=== PATIENT | female | born 1965 | race Caucasian/White ===

== ENCOUNTER 2019-01-16 19:29 | Emergency (ER) | payer OTHER ==
[~2019-01-16] VITALS: Ht 160 cm; Wt 91.2 kg
[2019-01-16 21:32] VITALS: Ht 160 cm; Wt 91.2 kg
[2019-01-16 22:50] VITALS: BP 123/66
== END 2019-01-16 22:44 | disposition home or self-care (01) ==
LOC: EDSEX 19:29 → ED 19:29
DX: J06.9 Acute upper respiratory infection, unspecified (principal); J03.90 Acute tonsillitis, unspecified

== ENCOUNTER 2020-10-11 01:44 | Emergency (ER) | payer OTHER ==
[~2020-10-11] VITALS: Ht 157.5 cm; Wt 91.2 kg
[2020-10-11 01:57] VITALS: Ht 157.5 cm; Wt 91.2 kg
[2020-10-11 03:11] VITALS: BP 132/87
== END 2020-10-11 03:11 | disposition home or self-care (01) ==
LOC: ED 01:44
DX: S20.212A Contusion of left front wall of thorax, initial encounter (principal); W01.0XXA Fall on same level from slipping, tripping and stumbling without subsequent striking against object, initial encounter; Y93.89 Activity, other specified; Y92.89 Other specified places as the place of occurrence of the external cause; Y99.8 Other external cause status